=== PATIENT | female | born 1965 ===

== ENCOUNTER 2016-12-16 09:45 | Day surgery (SDC) | payer OTHER ==
[2016-12-14 09:44] VITALS: BMI 22.4
[~2016-12-16 09:45] MED LIST: LACTATED RINGERS 1,000 ML IV SCH; LIDOCAINE 1% 20 ML VIAL (10MG/ML) FOR IV START INTRADERMA PRN
[2016-12-16 10:37] VITALS: RESP 16; TEMP 97.8
[2016-12-16] MEDS ORDERED: PROPOFOL 10 MG/ML 20 ML VIAL IV ONE (11:16)
--- NOTE | 2016-12-16 11:35 | P.PCN ---
Date of Procedure: 12/16/16 Preoperative Diagnosis: Postoperative Diagnosis: Procedure(s) Performed: BRIEF HISTORY: Patient is a 51-year-old pleasant white female, scheduled for an elective colonoscopy as a part of screening for colorectal neoplasia. PROCEDURE PERFORMED: Colonoscopy with biopsy . PREOPERATIVE DIAGNOSIS: Screening for colon cancer IV sedation per Anesthesia. PROCEDURE: After informed consent was obtained, the patient, was brought into the endoscopy unit. IV sedation was administered by Anesthesia under continuous monitoring. Digital rectal examination was normal. Initially the Olympus CF- 160 flexible video colonoscope was then inserted in the rectum, gradually advanced into the cecum without any difficulty. Careful examination was performed as the scope was gradually being withdrawn. Ileocecal valve and the appendiceal orifice were visualized and appeared normal. Prep was excellent. Mucosa of the cecum, ascending colon, transverse colon, descending colon, appeared normal. In the sigmoid colon there was a diminutive polyp that was removed by biopsy. The rest of the sigmoid colon, and rectum appeared normal. Retroflexion was performed in the rectum and no lesions were seen. The patient tolerated the procedure well. IMPRESSION: Diminutive polyp in the sigmoid colon status post biopsy. Rest of the colon appeared normal. RECOMMENDATIONS: Findings of this examination were discussed with the patient as well as a family. She was advised to follow with the biopsy results. If the biopsy shows a tubular adenoma she can have a repeat colonoscopy in 5 years. Implants: Indications for Procedure: Operative Findings: Description of Procedure:
[2016-12-16 11:42] VITALS: PULSE 80
[2016-12-16 11:55] VITALS: BP 109/56
== END 2016-12-16 12:37 | disposition home or self-care (01) ==
LOC: ORWHC2ENDO 09:45
PROVIDERS: ATTEND Internal Medicine Gastroenterology
DX: Z12.11 Encounter for screening for malignant neoplasm of colon (principal); K63.5 Polyp of colon; I10 Essential (primary) hypertension; Z79.899 Other long term (current) drug therapy
CPT/HCPCS: 81025; 88305; 45380; J2704